=== PATIENT | female | born 1935 | race Caucasian/White ===

== ENCOUNTER 2019-02-13 12:18 | Emergency (ER) | payer OTHER ==
[~2019-02-13] VITALS: Ht 165.1 cm; Wt 62.6 kg
[2019-02-13] MEDS ORDERED: SYNTHROID75 MCG PO (12:52)
[2019-02-13] MEDS ORDERED: CALCIUM500 M2 PO (12:53)
== END 2019-02-13 16:18 | disposition home or self-care (01) ==
LOC: ER 12:18
DX: S52.571A Other intraarticular fracture of lower end of right radius, initial encounter for closed fracture (principal); S52.511A Displaced fracture of right radial styloid process, initial encounter for closed fracture; W18.09XA Striking against other object with subsequent fall, initial encounter; Y93.89 Activity, other specified; Y92.89 Other specified places as the place of occurrence of the external cause; Y99.8 Other external cause status

== ENCOUNTER 2019-02-20 10:38 | Outpatient (CLI) | payer OTHER ==
[~2019-02-20 10:38] MED LIST: CALCIUM500 M2 PO; SYNTHROID75 MCG PO
== END 2019-02-20 10:40 | disposition home or self-care (01) ==
LOC: RAD 10:38
DX: S52.531A Colles' fracture of right radius, initial encounter for closed fracture (principal)

== ENCOUNTER → 2019-02-27 | Outpatient (CLI) | payer OTHER | END | disposition home or self-care (01) | LOC: RAD 11:00 | DX: S52.531A Colles' fracture of right radius, initial encounter for closed fracture (principal) ==

== ENCOUNTER 2019-04-01 09:07 | Outpatient (CLI) | payer OTHER | END 2019-04-01 15:00 | disposition home or self-care (01) | LOC: LAB 09:07 | DX: E55.9 Vitamin D deficiency, unspecified (principal); M85.88 Other specified disorders of bone density and structure, other site; E21.2 Other hyperparathyroidism; E88.89 Other specified metabolic disorders; M81.8 Other osteoporosis without current pathological fracture; E56.1 Deficiency of vitamin K ==

== ENCOUNTER 2019-04-08 13:49 | Outpatient (CLI) | payer OTHER | END 2019-04-08 13:55 | disposition home or self-care (01) | LOC: RAD 13:49 | DX: S52.531D Colles' fracture of right radius, subsequent encounter for closed fracture with routine healing (principal) ==

== ENCOUNTER 2019-05-01 14:18 | Outpatient (CLI) | payer OTHER | END 2019-05-01 14:41 | disposition home or self-care (01) | LOC: RAD 14:18 | DX: S52.531G Colles' fracture of right radius, subsequent encounter for closed fracture with delayed healing (principal) ==